=== PATIENT | female | born 1955 | race Hispanic/Latino ===

== ENCOUNTER 2019-09-09 12:40 | Emergency (ER) | payer MEDICAID ==
--- NOTE | 2019-09-09 12:50 | Event Note ---
ED Screening Note Date of service: 09/09/19 Time: 12:48 ED Screening Note: Pt complains of right axillary abscess x 1 week. Reports uncontrolled diabetes. 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 Further treatment and workup at subsequent clinical providers discretion. Patient/guardian urged not to elope from the ED as their condition may be serious if not clinically assessed and managed. Initial orders include:
[2019-09-09 12:53] VITALS: BP 171/108
[2019-09-09] MEDS ORDERED: HYDROcodone/ACETAMINOPHEN 10-325MG TAB PO ONE (13:23)
--- NOTE | 2019-09-09 14:46 | Emergency Department Report ---
Abscess Boil HPI - HPI Chief Complaint: Skin/Abscess/Foreign Body Stated Complaint: ABSCESS UNDER R ARM Time Seen by Provider: 09/09/19 12:47 Duration: 1 Week Location: Upper Extremity Severity: Mild History: Yes Pain, No Fever, No Purulent Drainage, No Numbness, No Foreign Body, No Previous History, No Insect Bite HPI: This is a 54-year-old female nontoxic, well nourished in appearance, no acute signs of distress presents to the ED with c/o of redness and pain to right axilla x1 week. Patient denies any pus or drainage. Patient denies any fever, chills, nausea, vomiting, chest pain, shortness of breath, headache or stiff neck. Patient stated allergies to sulfa. Home Medications: Previous Rx's Medication Instructions Recorded Last Taken Type ALBUTEROL Inhaler(NF) [VENTOLIN 1 puff IH Q4HR PRN #1 inha 11/04/18 Unknown Rx Inhaler(NF)] Azithromycin [Zithromax Z-OLENA] 250 mg PO DAILY #6 tab 11/04/18 Unknown Rx Benzonatate [Tessalon Perles] 100 mg PO Q8HR PRN #20 capsule 11/04/18 Unknown Rx Naproxen [Naprosyn] 500 mg PO BID #20 tablet 11/04/18 Unknown Rx glipiZIDE [Glipizide] 5 mg PO BID #60 tablet 11/04/18 Unknown Rx predniSONE [Prednisone] 50 mg PO DAILY #5 tablet 11/04/18 Unknown Rx Acetaminophen/Codeine [Tylenol 1 tab PO Q6H PRN #12 tab 09/09/19 Unknown Rx /Codeine # 3 tab] cephALEXin [Keflex] 500 mg PO Q8HR #21 cap 09/09/19 Unknown Rx Allergies/Adverse Reactions: Allergies Allergy/AdvReac Type Severity Reaction Status Date / Time Sulfa (Sulfonamide Allergy Anaphylaxis Verified 09/09/19 12:44 Antibiotics) ED Review of Systems ROS: Stated complaint: ABSCESS UNDER R ARM Other details as noted in HPI Constitutional: denies: chills, fever Eyes: denies: eye pain, eye discharge, vision change ENT: denies: ear pain, throat pain Respiratory: denies: cough, shortness of breath, wheezing Cardiovascular: denies: chest pain, palpitations Endocrine: no symptoms reported Gastrointestinal: denies: abdominal pain, nausea, diarrhea Genitourinary: denies: urgency, dysuria, discharge Musculoskeletal: denies: back pain, joint swelling, arthralgia Skin: denies: rash, lesions Neurological: denies: headache, weakness, paresthesias Psychiatric: denies: anxiety, depression Hematological/Lymphatic: denies: easy bleeding, easy bruising ED Past Medical Hx - Past Medical History Hx Hypertension: Yes Hx Diabetes: Yes Hx Deep Vein Thrombosis: Yes Hx Psychiatric Treatment: Yes (Anxiety, Depression) - Surgical History Hx Cholecystectomy: Yes Additional Surgical History: Right leg - Social History Smoking Status: Current Every Day Smoker Substance Use Type: None - Medications Home Medications: Home Medications Medication Instructions Recorded Confirmed Last Taken Type ALBUTEROL Inhaler(NF) [VENTOLIN 1 puff IH Q4HR PRN #1 inha 11/04/18 Unknown Rx Inhaler(NF)] Azithromycin [Zithromax Z-OLENA] 250 mg PO DAILY #6 tab 11/04/18 Unknown Rx Benzonatate [Tessalon Perles] 100 mg PO Q8HR PRN #20 capsule 11/04/18 Unknown Rx Naproxen [Naprosyn] 500 mg PO BID #20 tablet 11/04/18 Unknown Rx glipiZIDE [Glipizide] 5 mg PO BID #60 tablet 11/04/18 Unknown Rx predniSONE [Prednisone] 50 mg PO DAILY #5 tablet 11/04/18 Unknown Rx Acetaminophen/Codeine [Tylenol 1 tab PO Q6H PRN #12 tab 09/09/19 Unknown Rx /Codeine # 3 tab] cephALEXin [Keflex] 500 mg PO Q8HR #21 cap 09/09/19 Unknown Rx ED Abscess Boil Physical Exam - Exam General: Vital signs noted. No distress. Alert and acting appropriately. Size: 3 cm Exam: Yes Tenderness, Yes Fluctuance, Yes Normal Neurologic Exam, Yes Normal Circulation, No Surrounding Cellulites/Erythema, No Lymphangitis, No Crepitation, No Heart Murmur I & D Note - I & D Note I & D Note: Under sterile field, I used Betadine to cleanse the area. I then used 2% lidocaine plain with 25-gauge 5/8 needle to inject area for anesthetic purposes. Total volume injected 3 mL. I then used an 11 blade to make a 1 cm incision. About 2 mL's of purulent drainage has been noted. I then used a hemostat to break the abscess formation. I then used sterile 0.9% normal saline flush to flush the wound with total volume of 40 mL used. I then put a 1/4 iodoform packing to the incision. A sterile 4 x 4 with tape has been applied as dressing. Bleeding is under control. Patient tolerated the procedure well with no signs of distress noted. ED Course Vital Signs 09/09/19 12:52 Temperature 99.5 F Pulse Rate 94 H Respiratory 18 Rate Blood Pressure 171/108 [Right] O2 Sat by Pulse 96 Oximetry - Reevaluation(s) Reevaluation #1: 09/09/19 14:43 Patient is speaking in full sentences with no signs of distress noted. Critical care attestation.: If time is entered above; I have spent that time in minutes in the direct care of this critically ill patient, excluding procedure time. ED Medical Decision Making - Medical Decision Making This is a 64-year-old female that presents with right axillary abscess. Patient is stable and was examined by me. This is incision and drainage and has been performed and patient tolerated well. A sterile dressing has been applied. Patient was educated on proper wound care. Patient is discharged with Keflex and Tylenol with codeine and was instructed not to operate any machinery while taking Tylenol with codeine due to drowsiness. Patient was instructed to return in 2 days for packing removal. Patient was instructed to refer to Follow-up with a primary care doctor in 3-5 days or if symptoms worsen and continue return to emergency room as soon as possible. At time of discharge, the patient does not seem toxic or ill in appearance. No acute signs of distress noted. Patient agrees to discharge treatment plan of care. No further questions noted by the patient. ED Disposition Clinical Impression: Axillary abscess, Encounter for incision and drainage procedure Disposition: DC-01 TO HOME OR SELFCARE Is pt being admited?: No Does the pt Need Aspirin: No Condition: Stable Instructions: Abscess Incision and Drainage (ED), Abscess (ED), Acetaminophen/Codeine (By mouth) Additional Instructions: Follow-up with a primary care doctor in 3-5 days or if symptoms worsen and continue return to emergency room as soon as possible. Do not operate any machinery while taking Tylenol with codeine as this may cause drowsiness. Return in 2 days for packing removal Prescriptions: cephALEXin [Keflex] 500 mg PO Q8HR #21 cap Acetaminophen/Codeine [Tylenol /Codeine # 3 tab] 1 tab PO Q6H PRN #12 tab PRN Reason: Pain , Severe (7-10) Referrals: PRIMARY CARE, [Referring] - 3-5 Days AMANDA RAZO MD [Staff Physician] - 3-[address] [facility] [Outside] - 3-5 Days [facility] [Outside] - 3-5 Days Forms: Work/School Release Form(ED)
== END 2019-09-09 15:13 | disposition home or self-care (01) ==
LOC: ED 12:40
DX: L02.411 Cutaneous abscess of right axilla (principal); I10 Essential (primary) hypertension; E11.9 Type 2 diabetes mellitus without complications; F41.9 Anxiety disorder, unspecified; F32.9 Major depressive disorder, single episode, unspecified; F17.200 Nicotine dependence, unspecified, uncomplicated; Z86.718 Personal history of other venous thrombosis and embolism; Z90.49 Acquired absence of other specified parts of digestive tract; Z88.2 Allergy status to sulfonamides; Z79.899 Other long term (current) drug therapy

== ENCOUNTER 2019-12-28 23:33 | Emergency (ER) | payer MEDICAID ==
--- NOTE | 2019-12-29 00:43 | XRay Report ---
Right shoulder, 3 views INDICATION: Pain following fall FINDINGS: There is no fracture or dislocation. There is separation of the AC joint however and slight superior displacement of the clavicle. Otherwise no abnormality. Signer Name: Kamlesh Koenig MD Signed: 12/29/2019 12:38 AM Workstation Name: [id number]
[2019-12-29] MEDS ORDERED: HYDROmorphone 1 MG/1 ML INJ IM ONE (01:02)
[2019-12-29] MEDS ORDERED: ONDANSETRON 4 MG/2 ML INJ IM ONE (01:02)
[2019-12-29] MEDS ORDERED: KETOROLAC 60 MG/2 ML INJ IM ONE (01:02)
--- NOTE | 2019-12-29 01:10 | Emergency Department Report ---
HPI - General Chief Complaint: Fall Time Seen by Provider: 12/29/19 00:54 - HPI HPI: Room 35 The patient is a 64-year-old female present with a chief complaint of shoulder pain. Patient states she fell in the shower and landed on her right shoulder. There is no loss of consciousness the patient states she did not strike her head. Patient complains of pain in the right shoulder and gives it a score of 10/10. ED Past Medical Hx - Past Medical History Previous Medical History?: Yes Hx Hypertension: Yes Hx Diabetes: Yes Hx Deep Vein Thrombosis: Yes Hx Psychiatric Treatment: Yes (Anxiety, Depression) Hx COPD: Yes - Surgical History Past Surgical History?: Yes Hx Cholecystectomy: Yes Additional Surgical History: Right leg - Family History Family history: no significant - Social History Smoking Status: Current Every Day Smoker Substance Use Type: None - Medications Home Medications: Home Medications Medication Instructions Recorded Confirmed Last Taken Type ALBUTEROL Inhaler(NF) [VENTOLIN 1 puff IH Q4HR PRN #1 inha 11/04/18 Unknown Rx Inhaler(NF)] Azithromycin [Zithromax Z-OLENA] 250 mg PO DAILY #6 tab 11/04/18 Unknown Rx Benzonatate [Tessalon Perles] 100 mg PO Q8HR PRN #20 capsule 11/04/18 Unknown Rx Naproxen [Naprosyn] 500 mg PO BID #20 tablet 11/04/18 Unknown Rx glipiZIDE [Glipizide] 5 mg PO BID #60 tablet 11/04/18 Unknown Rx predniSONE [Prednisone] 50 mg PO DAILY #5 tablet 11/04/18 Unknown Rx Acetaminophen/Codeine [Tylenol 1 tab PO Q6H PRN #12 tab 09/09/19 Unknown Rx /Codeine # 3 tab] cephALEXin [Keflex] 500 mg PO Q8HR #21 cap 09/09/19 Unknown Rx HYDROcodone/APAP 5-325 [[place] 1 - 2 each PO Q6HR PRN #20 tablet 12/29/19 Unknown Rx 5/325] Ibuprofen [Motrin 800 MG tab] 800 mg PO Q8HR PRN #20 tablet 12/29/19 Unknown Rx ED Review of Systems ROS: Stated complaint: FALL/R SHOULDER PAIN Other details as noted in HPI Musculoskeletal: arthralgia Physical Exam - Physical Exam Vital Signs: Vital Signs 12/28/19 23:39 Temperature 98.5 F Pulse Rate 88 Respiratory 20 Rate Blood Pressure 187/108 [Left] O2 Sat by Pulse 99 Oximetry Physical Exam: GENERAL: The patient is well-developed well-nourished female lying on stretcher appearing to be in mild discomfort HEENT: Normocephalic. Atraumatic. Extraocular motions are intact. Patient has moist mucous membranes. NECK: Supple. No midline axial tenderness to palpation CHEST/LUNGS:There is no respiratory distress noted. SKIN: There is no rash. There is no edema. There is no diaphoresis. There is no skin tenting NEURO: The patient is awake, alert, and oriented. The patient is cooperative. The patient has no focal neurologic deficits. The patient has normal speech MUSCULOSKELETAL: There is tenderness to palpation of the right AC joint ED Course Vital Signs 12/28/19 23:39 Temperature 98.5 F Pulse Rate 88 Respiratory 20 Rate Blood Pressure 187/108 [Left] O2 Sat by Pulse 99 Oximetry ED Medical Decision Making - Radiology Data Radiology results: report reviewed (Right shoulder x-ray), image reviewed (Right shoulder x-ray) interpreted by me: Right shoulder x-ray- AC separation . no acute fracture [facility] [address] [place] [address] XRay Report Signed Patient: GIANNI OGLESBY MR#: [id number] 3 : 1955 Acct:[id number] Age/Sex: 64 / F ADM Date: 12/28/19 Loc: ED Attending Dr: Ordering Physician: KISHORE ADAM MD Date of Service: 12/28/19 Procedure(s): XR shoulder 2+V RT Accession Number(s): [id number] cc: ED MD KIA Fluoro Time In Minutes: Right shoulder, 3 views INDICATION: Pain following fall FINDINGS: There is no fracture or dislocation. There is separation of the AC joint however and slight superior displacement of the clavicle. Otherwise no abnormality. Signer Name: Kamlesh Koenig MD Signed: 12/29/2019 12:38 AM Workstation Name: [id number] Transcribed By: MISTI Dictated By: Kamlesh Koenig MD Electronically Authenticated By: Kamlesh Koenig MD Signed Date/Time: 12/29/1937 DD/ TD/TT: - Differential Diagnosis ac separation, shoulder contusion, distal located shoulder Critical care attestation.: If time is entered above; I have spent that time in minutes in the direct care of this critically ill patient, excluding procedure time. ED Disposition Clinical Impression: Separation of right acromioclavicular joint, Acute pain of right shoulder Disposition: TO HOME OR SELFCARE Is pt being admited?: No Does the pt Need Aspirin: No Condition: Stable Instructions: Acromioclavicular Separation (ED) Additional Instructions: Return to the emergency department should you develop worsening symptoms, inability to tolerate food or liquids, high fever or any other concerns Prescriptions: Ibuprofen [Motrin 800 MG tab] 800 mg PO Q8HR PRN #20 tablet PRN Reason: Pain, Moderate (4-6) HYDROcodone/APAP 5-325 [[place] 5/325] 1 - 2 each PO Q6HR PRN #20 tablet PRN Reason: Pain Referrals: GARCIA OLMOS MD [Primary Care Provider] - 3-5 Days JULY FAUSTIN MD [Staff Physician] - 3-5 Days (Dr. Faustin is an orthopedic surgeon. Please follow-up with him for further evaluation) Time of Disposition: 01:12
[2019-12-29 01:37] VITALS: BP 177/98
== END 2019-12-29 01:46 | disposition home or self-care (01) ==
LOC: ED 23:33
DX: S43.101A Unspecified dislocation of right acromioclavicular joint, initial encounter (principal); I10 Essential (primary) hypertension; E11.9 Type 2 diabetes mellitus without complications; Z86.718 Personal history of other venous thrombosis and embolism; F41.8 Other specified anxiety disorders; F32.9 Major depressive disorder, single episode, unspecified; J44.9 Chronic obstructive pulmonary disease, unspecified; Z98.890 Other specified postprocedural states; F17.200 Nicotine dependence, unspecified, uncomplicated; Z79.1 Long term (current) use of non-steroidal anti-inflammatories (NSAID); Z79.899 Other long term (current) drug therapy; Z88.2 Allergy status to sulfonamides; W18.2XXA Fall in (into) shower or empty bathtub, initial encounter; Y93.89 Activity, other specified; Y92.89 Other specified places as the place of occurrence of the external cause; Y99.8 Other external cause status
CPT/HCPCS: 73030; 96372; 99283; J1170; J1885; J2405